=== PATIENT | male | born 1980 | race Caucasian/White ===

== ENCOUNTER 2019-04-22 15:51 | Inpatient (IN) ==
--- NOTE | 2019-04-22 16:38 | EKG Report ---
Test Performed on : 04/22/2019 4:18:15 PM Test Reason : syncope Blood Pressure : / mmHG Vent. Rate : 112 BPM Atrial Rate : 112 BPM P-R Int : 124 ms QRS Dur : 082 ms QT Int : 306 ms P-R-T Axes : 064 096 031 degrees QTc Int : 417 ms Sinus tachycardia. Rightward axis Cannot rule out Anterior infarct , age undetermined Abnormal ECG No previous ECGs available Unconfirmed Result
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
[2019-04-22] MEDS ORDERED: DILAUDID IV ONE (17:32)
[2019-04-22] MEDS ORDERED: DIPRIVAN 1% IV ONE (17:40)
--- NOTE | 2019-04-22 17:48 | Diag Imaging Result Doc PS360 ---
EXAM: TRAUMA SHOULDER LEFT INDICATION: shoulder injury TECHNIQUE: 2 views COMPARISON: None. FINDINGS: There is an anterior dislocation of the humeral head with respect to the glenoid. There is also a fracture through the greater tubercle of the humeral head with significant displacement. No other discrete fracture or dislocation is appreciated. Surrounding soft tissues are unremarkable. IMPRESSION: Anterior shoulder dislocation with associated displaced fracture through the greater tubercle of the humeral head. Electronically signed by Herman Kim 04/22/2019 5:46 PM
[2019-04-22] MEDS ORDERED: NS 1,000 ML ONE (18:23)
[2019-04-22] MEDS ORDERED: AMIDATE IV ONE (18:36)
[2019-04-22] MEDS ORDERED: AMIDATE ONE (18:42)
[2019-04-22] MEDS ORDERED: MORPHINE IV ONE (18:59)
--- NOTE | 2019-04-22 19:02 | Diag Imaging Result Doc PS360 ---
EXAM: SHOULDER 1 VIEW LEFT INDICATION: post reduction TECHNIQUE: One view COMPARISON: 04/22/2019 FINDINGS: There is still an anterior shoulder dislocation status post initial reduction attempt. There has been no change in positioning of the humeral head with respect to the glenoid. The displaced fracture through the greater tubercle of the humerus is unchanged. IMPRESSION: Persistent anterior dislocation status post reduction attempt. Electronically signed by Herman Kim 04/22/2019 6:59 PM
[2019-04-22] MEDS ORDERED: NORCO-7.5 PO ONE (19:52)
[2019-04-22] MEDS ORDERED: MORPHINE IV PRN (20:10)
[2019-04-22 20:20] LABS: INR 1.02; PROTIME 13.6 Seconds (11.0-16.0); PTT 33.2 Seconds (22.3-41.8)
[2019-04-22] MEDS ORDERED: ATIVAN IV ONE (20:29)
--- NOTE | 2019-04-22 20:41 | Diag Imaging Result Doc PS360 ---
EXAM: CT HEAD W/O CONTRAST INDICATION: trauma TECHNIQUE: This exam was performed using automated exposure control, adjustment of mA or kV according to patient size, and/or use of iterative reconstruction technique. COMPARISON: None. FINDINGS: There is no definite acute infarct given the limited sensitivity of CT versus MRI. There is no discrete intracranial mass, mass effect, or intracranial hemorrhage. The surrounding soft tissues and bony structures are essentially unremarkable. IMPRESSION: No evidence of acute intracranial pathology. Electronically signed by Herman Kim 04/22/2019 8:38 PM
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
[2019-04-22 21:34] LABS: URINE SOURCE CLEAN CATCH
[2019-04-22 21:37] LABS: BILIRUBIN URINE NEGATIVE (NEGATIVE); BLOOD URINE NEGATIVE (NEGATIVE); COLOR YELLOW; GLUCOSE URINE TRACE mg/dL (NEGATIVE); KETONE URINE NEGATIVE (NEGATIVE); LEUKOCYTES URINE NEGATIVE (NEGATIVE); NITRITE URINE NEGATIVE (NEGATIVE); PROTEIN URINE TRACE mg/dL (NEGATIVE); TURBIDITY URINE CLEAR (CLEAR); UROBILINOGEN URINE NORMAL (NORMAL)
[2019-04-22 21:38] LABS: UR EPITHELIAL CELLS <10 /HPF (<10); URINE BACTERIA NEGATIVE /HPF; URINE RBC <10 /HPF (<10); URINE WBC <10 /HPF (<10)
[2019-04-22 22:00] LABS: BASO# 0.02 X1000 (0.0-0.2); BASO% 0.1 % (0.0-0.8); EOS# 0.13 X1000 (0.0-0.7); EOS% 0.9 % (0.0-10.0); HEMATOCRIT 39.1 % (42.0-52.0); HEMOGLOBIN 12.8 g/dL (14.0-18.0); IMM GRAN# 0.03 X1000 (0.0-0.04); IMM GRAN% 0.2 % (0.0-0.5); LYMPH# 1.63 X1000 (1.2-3.4); MCH 27.6 PG (27-31); MCHC 32.7 g/dL (33-37); MCV 84.4 FL (81-99); MONO# 1.62 X1000 (0.11-0.59); MONO% 10.9 % (1.7-9.3); MPV 9.8 FL (7.4-10.4); NEUT# 11.45 X1000 (1.4-6.5); NEUT% 76.9 % (42.2-75.2); PLT 229 X1000 (130-400); RBC 4.63 XMIL (4.7-6.1); RDW 13.9 % (11.5-14.5); WBC 14.88 X1000 (4.8-10.8)
[2019-04-22 22:18] LABS: AGAP 9; BUN 18 mg/dL (8-22); CALCIUM 8.7 mg/dL (8.8-10.2); CHLORIDE 105 mmol/L (98-107); COSMO 281; CREATININE 0.8 mg/dL (0.7-1.2); ESTIMATED GFR > 60; GLUCOSE 167 mg/dL (70-104); POTASSIUM 4.1 mmol/L (3.5-5.1); SODIUM 138 mmol/L (136-145); TCO2 24 mmol/L (25-35)
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
[2019-04-22] MEDS: MORPHINE IV PRN (23:40)
[2019-04-22] MEDS: ZOFRAN IV PRN (23:40)
[2019-04-23] MEDS: MORPHINE IV PRN ×2 (03:52→08:48)
[2019-04-23] MEDS: ZOFRAN IV PRN (03:52)
[2019-04-23 07:16] LABS: BASO# 0.02 X1000 (0.0-0.2); BASO% 0.1 % (0.0-0.8); EOS# 0.18 X1000 (0.0-0.7); EOS% 1.3 % (0.0-10.0); HEMATOCRIT 40.4 % (42.0-52.0); HEMOGLOBIN 13.3 g/dL (14.0-18.0); IMM GRAN# 0.03 X1000 (0.0-0.04); IMM GRAN% 0.2 % (0.0-0.5); LYMPH# 1.51 X1000 (1.2-3.4); LYMPH% 10.8 % (20.5-51.1); MCH 27.9 PG (27-31); MCHC 32.9 g/dL (33-37); MCV 84.9 FL (81-99); MONO# 1.47 X1000 (0.11-0.59); MONO% 10.5 % (1.7-9.3); NEUT# 10.83 X1000 (1.4-6.5); NEUT% 77.1 % (42.2-75.2); PLT 251 X1000 (130-400); RBC 4.76 XMIL (4.7-6.1); WBC 14.04 X1000 (4.8-10.8)
[2019-04-23 07:31] LABS: AGAP 8; BUN 11 mg/dL (8-22); CALCIUM 8.6 mg/dL (8.8-10.2); CHLORIDE 102 mmol/L (98-107); COSMO 272; CREATININE 0.8 mg/dL (0.7-1.2); ESTIMATED GFR > 60; GLUCOSE 150 mg/dL (70-104); POTASSIUM 4.2 mmol/L (3.5-5.1); SODIUM 135 mmol/L (136-145); TCO2 25 mmol/L (25-35)
--- NOTE | 2019-04-23 09:00 | ORTHOPAEDICS CONSULTATION ---
DATE: 04/22/2019 CLINICAL HISTORY: The patient is a pleasant 39-year-old male with a past medical history of IV drug abuse with methamphetamine who presented to the emergency room with a 1-day history of significant pain and discomfort in his left shoulder. The patient reports that he passed out yesterday morning. He has had pain and discomfort in his left shoulder since that time. He is in severe discomfort. There are some conflicting reports of last time he used methamphetamine. He told the ER physician 1 day ago, and he told me upon my questioning 3 days ago. So unsure of this at this point. He presented to the emergency room. X-rays revealed a left anterior dislocation of the shoulder with fracture of greater tuberosity. Attempt at closed reduction was performed by the ER physician and Orthopedic consultation requested. PAST MEDICAL HISTORY: None. PAST SURGICAL HISTORY: None. ALLERGIES: No known drug allergies. CURRENT MEDICATIONS: None. SOCIAL HISTORY: IV drug abuse with methamphetamine. PHYSICAL EXAMINATION: Patient is awake, alert, and cooperative with exam. Again, his left shoulder has obvious deformity with significant swelling throughout the shoulder. Diffuse tenderness to palpation. Pain with gentle movement. He is able to flex down was fingers. He has good capillary refill distally. He is grossly neurovascularly intact with his hand. His compartments are soft. RADIOGRAPHS: X-rays were reviewed and revealed left anterior shoulder dislocation, greater tuberosity fracture. IMPRESSION: Left anterior shoulder dislocation with greater tuberosity fracture. PLAN: At this point, given the patient's findings, recommendation to proceed with closed reduction with possible open reduction, left shoulder, under general anesthesia. Risks and benefits were discussed including risks of anesthesia, , bleeding, infection, failure to relieve pain, postoperative stiffness, nerve injury, blood clots, and other imponderables. All questions were answered. cc: Michael Au MD
--- NOTE | 2019-04-23 13:40 | ORTHOPAEDICS PROGRESS NOTE ---
DATE: 04/23/2019 SUBJECTIVE: Mr. Mayfield that is status post day 3 of a left anterior shoulder dislocation that is the result of a fall. Closed reduction was attempted in the ER yesterday, was unsuccessful. We will be taking him to the operating room today for attempted closed reduction with possible open reduction of the left shoulder under general anesthesia. OBJECTIVE: Mr. Mayfield is lying in bed in no acute distress at this time. His left arm is to his side and he is very hesitant to move it. There is an obvious deformity with significant swelling throughout the shoulder. He has diffuse tenderness to palpation and pain with gentle movement. He is able to move all of his fingers. He has full sensation intact and his capillary refill is less than 2 seconds. ASSESSMENT: Left anterior shoulder dislocation with a greater tuberosity fracture. PLAN: Mr. Mayfield will be going to the OR this afternoon. He has been NPO since midnight. Risks and benefits of surgery were discussed with him this morning by Dr. Au. Dictated by MARLEY Wilson for Michael Au MD cc: Michael Au MD
[2019-04-23] MEDS ORDERED: XYLOCAINE-MPF 2% ONE (13:48)
[2019-04-23] MEDS ORDERED: QUELICIN (DOSE) ONE (13:48)
[2019-04-23] MEDS ORDERED: DIPRIVAN 1% ONE (13:48)
[2019-04-23] MEDS ORDERED: FENTANYL ONE (14:35)
[2019-04-23] MEDS ORDERED: ZOFRAN ONE (15:06)
[2019-04-23] MEDS ORDERED: OXY IR PO PRN (16:09)
--- NOTE | 2019-04-23 19:22 | OPERATIVE NOTE ---
PROCEDURE DATE: 04/23/2019 PREOPERATIVE DIAGNOSIS: Left shoulder fracture dislocation. POSTOPERATIVE DIAGNOSIS: Left shoulder fracture dislocation. PROCEDURE: Closed reduction under general anesthesia. SURGEON: Michael Au MD. ANESTHESIA: General. COMPLICATIONS: None. INDICATION: The patient is a pleasant 39-year-old male who is 2 days status post injury to his left shoulder. He was told by the ER physician that he passed out. The patient sustained the injury 2 days ago. The patient is an IV methamphetamine user and reported to the ER physician that he had used meth the day prior to presentation to the emergency room. He had pain and discomfort and underwent x-rays, and x-rays revealed a left anterior shoulder dislocation with a greater tuberosity fracture. An attempt at closed reduction in the emergency room was performed by the ER physician and was unsuccessful. Recommendation to proceed with closed reduction, possible open reduction, under general anesthesia was offered. Risks and benefits of surgery were explained, including the risks of anesthesia, , bleeding, infection, failure to relieve pain, postoperative stiffness, nerve injury, blood clots, and other imponderables. All questions were answered. Patient and family agreed with treatment plan. DETAILS OF OPERATION: The patient was taken to the operating room and underwent general anesthesia. After adequate anesthesia was obtained, gentle traction and countertraction maneuver was performed of the shoulder. A gentle closed reduction was then performed. Shoulder was carried through a range of motion and appeared to be stable except for in abducted and external rotation position. C-arm visualization was used to confirm concentric reduction, and patient had some mild displacement of the greater tuberosity fracture. After confirming concentric reduction, the patient was then placed in a sling. He tolerated the procedure well and was transferred to the recovery room in stable condition. cc: Michael Au MD
[2019-04-23] MEDS ORDERED: TYLENOL PO ONE (22:11)
[2019-04-23 22:30] VITALS: BP 160/97
--- NOTE | 2019-04-24 05:08 | DISCHARGE SUMMARY ---
ADMISSION DATE: 04/22/2019 DISCHARGE DATE: 04/23/2019 HISTORY: The patient is 39 years old, and he is seen postop. He had a left shoulder dislocation fracture of the greater tubercle of the humeral head. He underwent treatment which was open reduction and internal fixation per Orthopedic Service. Postoperative, he is kind of sleepy and lethargic, but vital signs are okay except for some hypertension. He had a dislocated shoulder, and a fracture of the tubercle of his humerus with displacement. PLAN: He had open reduction and internal fixation. Plan is to go home today. He does have a history of IV drug use. He was counseled against that. If stable, I think he is certainly okay to go home. He does not really have any active medical issues at this point. cc: Eagle Nelson MD
== END 2019-04-23 22:40 | disposition home or self-care (01) | DRG 563 ==
LOC: SUPCPDRO → ED 15:51 → SUATTDRO 22:07 → 4N 22:07
PROVIDERS: ATTEND Internal Medicine

== ENCOUNTER 2019-05-12 04:11 | Inpatient (IN) ==
--- NOTE | 2019-05-12 04:47 | PROVIDER DOCUMENTATION ---
HPI-General Adult - General Chief Complaint: Shoulder Pain Stated Complaint: RECHECK (L) SHOULDER, ALSO HEMATURIA Time Seen by Provider: 05/12/19 04:20 Source: patient Allergies/Adverse Reactions: Patient Allergies Allergy/AdvReac Type Severity Reaction Status Date / Time No Known Allergies Allergy Verified 05/12/19 04:21 Home Medications: Home Medication List Medication Instructions Recorded Confirmed Last Taken Type NK [No Home Medications] 04/22/19 05/12/19 Unknown History - History of Present Illness -Gen Adult Nature of Presenting Problems: Presents to the with multiple complaints. He states that he was seen in the ED 3 weeks ago when he passed out for an unknown reason and came into the ER for an anterior dislocation that he had to go to the OR for. He states that he was supposed to followup with Dr Au but never did and now he has decreased ROM since he had the surgery. He states he would like to know what is going on. He denies any new injury to it. He additionally states that for the last week he has had some hematuria. He endorses some frequency but denies any dysuria. He appears jaundiced and states that someone told him he was. He has not had any nausea or vomiting or fevers. He has a history of IV meth use and his last use was 3 days ago. He is here with his who is also jaundice and also admits to IV meth use Review of Systems - Adult - REVIEW OF SYSTEMS - ADULT Constitutional: reports: see HPI. denies: chills, fever Eyes: reports: no symptoms reported Ears, Nose, Mouth & Throat: reports: no symptoms reported Cardiovascular: reports: no symptoms reported Respiratory: reports: no symptoms reported Gastrointestinal: reports: no symptoms reported Genitourinary: reports: see HPI, frequency, hematuria. denies: dysuria Musculoskeletal: reports: see HPI, other (decreased ROM) Integumentary: reports: no symptoms reported Neurological: reports: no symptoms reported Psychiatric: reports: no symptoms reported Endocrine: reports: no symptoms reported Hematologic/Lymphatic: reports: no symptoms reported Allergic/Immunologic: reports: no symptoms reported All Other Systems: Reviewed and Negative Past History - Adult - PAST MEDICAL HISTORY-ADULT Review of Records: reports: Old Records Reviewed Cardiovascular: reports: denies history Respiratory: reports: denies history Musculoskeletal: reports: denies history Psychiatric: reports: other (IV drug abuse) Other Conditions: reports: other (H/o intermittent hypoglycemia reported by patient) - PRIOR SURGERIES/PROCEDURES Surgical/Procedure History: reports: none - IMMUNIZATION STATUS Childhood Immunizations: See Nurse Assessment Flu Vaccine: See Nurse Assessment - FAMILY HISTORY Family History: reviewed, not pertinent Physical Exam-General - CONSTITUTIONAL General Appearance: alert, no apparent distress - EYES Eyes: PERRL/EOMI, scleral icterus - HEAD, EARS, NOSE, MOUTH & THROAT HENMT: normocephalic/atraumatic - NECK Neck: supple, normal inspection - RESPIRATORY Respiratory: chest non-tender, lungs clear, normal breath sounds, no respiratory distress, no accessory muscle use - CARDIOVASCULAR Cardiovascular: normal peripheral pulses, regular rate, rhythm, no murmur - GASTROINTESTINAL (ABDOMEN) Abdominal Exam: normal bowel sounds, non tender, soft - MUSCULOSKELETAL Back Exam: normal inspection, no CVA tenderness, no vertebral tenderness Extremity: tenderness (left shoulder), other (moderate decreased ROM. Unable to abduct arm). negative: deformity, pulse deficit, slow capillary refill - SKIN Integumentary: warm/dry, jaundice - NEUROLOGIC Neurologic: grossly normal - PSYCHIATRIC Psych/Mental Status: normal mood/affect, oriented x 3 Progress - PLAN OF CARE/RESULTS Progress/Plan/Lab Results: Vital Signs - 8 hr 05/12/19 04:13 05/12/19 04:19 Temperature 97.8 F Pulse Rate 109 H Respiratory Rate 18 Blood Pressure 126/90 O2 Sat by Pulse Oximetry 96 Orders Category Date Time Status SHOULDER-LEFT [RAD] Stat Exams 05/12/19 04:16 Ordered CBC WITH ELECTRONIC DIFF [HEME] Stat Lab 05/12/19 04:35 Uncollected COMPREHENSIVE METABOLIC PANEL [CHEM] Stat Lab 05/12/19 04:35 Uncollected HEPATITIS PROFILE [HH] Stat Lab 05/12/19 04:35 Uncollected LIPASE [CHEM] Stat Lab 05/12/19 04:35 Uncollected PROTIME WITH INR [COAG] Stat Lab 05/12/19 04:35 Uncollected PTT [COAG] Stat Lab 05/12/19 04:35 Uncollected URINALYSIS W/POSS RFLX CULT [URINALYSIS] Stat Lab 05/12/19 04:16 Uncollected URINE DRUG SCREEN Stat Lab 05/12/19 04:16 Uncollected Result Diagrams: 05/12/19 04:49 05/12/19 04:49 - XRAY 1 XRAY: Left XRAY Study: Shoulder (humeral head fracture) - CONSULTS/PCP/HOSPITALIST Notification #1 *Consult/PCP/Hospitalist*: Betty MI for Hospitalist Time Discussed: 08:41 Consult Disposition: Will see in ED, Admit - CHANGE OF SHIFT REPORT (ED Provider) 1 Report Given and Care Transferred to:: Dr Carter Time of Transfer: 07:00 Items Pending: Ultrasound Results Departure - Departure Date of Disposition Decision: 05/12/19 Time of Disposition Decision: 08:41 DIAGNOSIS: Methamphetamine abuse, Greater tuberosity of humerus fracture, Jaundice, Elevated LFTs, Elevated bilirubin Disposition: ADMITTED INPATIENT 09 Certified Medical Emergency: Emergent Condition: Fair Referrals and Follow-Ups: None,PCP [Primary Care Provider] - - Critical Care Note This patient required my direct & personal management of CC.: No Attestation - Physician/ NATALIYA Attestation Patient care was provided by Advanced Practice Provider:: No The physician spent face to face time with patient:: Yes Advanced Practice Provider documentation review:: Supervising physician onsite and consulted in the evaluation and care of this patient. The physician did have a face to face encounter with the patient.
[2019-05-12] MEDS ORDERED: NS 1,000 ML IV ONE (04:57)
[2019-05-12 05:24] LABS: INR 1.06
[2019-05-12 05:25] LABS: PTT 38.4 Seconds (22.3-41.8)
[2019-05-12 05:38] LABS: BASO# 0.06 X1000 (0.0-0.2); BASO% 0.9 % (0.0-0.8); EOS# 0.02 X1000 (0.0-0.7); EOS% 0.3 % (0.0-10.0); HEMATOCRIT 48.2 % (42.0-52.0); HEMOGLOBIN 15.9 g/dL (14.0-18.0); IMM GRAN# 0.02 X1000 (0.0-0.04); IMM GRAN% 0.3 % (0.0-0.5); LYMPH# 1.41 X1000 (1.2-3.4); LYMPH% 20.8 % (20.5-51.1); MCH 27.2 PG (27-31); MCV 82.4 FL (81-99); MONO# 0.89 X1000 (0.11-0.59); MONO% 13.1 % (1.7-9.3); MPV 12.5 FL (7.4-10.4); NEUT# 4.37 X1000 (1.4-6.5); NEUT% 64.6 % (42.2-75.2); PLT 199 X1000 (130-400); RBC 5.85 XMIL (4.7-6.1); WBC 6.77 X1000 (4.8-10.8)
[2019-05-12 06:29] LABS: AGAP 14; ALKALINE PHOSPHATASE 434 U/L (32-122); BUN 10 mg/dL (8-22); CALCIUM 9.5 mg/dL (8.8-10.2); CHLORIDE 98 mmol/L (98-107); COSMO 274; ESTIMATED GFR > 60; GLUCOSE 118 mg/dL (70-104); GOT 1896 U/L (10-34); GPT 3210 U/L (10-44); LIPASE 48 U/L (13-60); POTASSIUM 4.1 mmol/L (3.5-5.1); SODIUM 137 mmol/L (136-145); TCO2 25 mmol/L (25-35); TOTAL BILIRUBIN 12.84 mg/dL (0.20-1.00); TOTAL PROTEIN 8.2 g/dL (6.3-8.3)
[2019-05-12 06:53] LABS: URINE SOURCE CLEAN CATCH
[2019-05-12 07:17] LABS: UR AMPHETAMINES QUAL PRESUMPTIVE POSITIVE (NONE DETECT); UR BARBITUATES QUAL NONE DETECTED (NONE DETECT); UR BENZODIAZEPIN QUAL NONE DETECTED (NONE DETECT); UR CANNABINOIDS QUAL NONE DETECTED (NONE DETECT); UR COCAINE QUAL NONE DETECTED (NONE DETECT); UR METHADONE QUAL NONE DETECTED (NONE DETECT); UR OPIATES QUAL NONE DETECTED (NONE DETECT); UR OXYCODONE QUAL NONE DETECTED (NONE DETECT); UR PCP QUAL NONE DETECTED (NONE DETECT)
[2019-05-12 07:19] LABS: BILIRUBIN URINE LARGE (NEGATIVE); BLOOD URINE NEGATIVE (NEGATIVE); COLOR YELLOW; GLUCOSE URINE NEGATIVE (NEGATIVE); KETONE URINE NEGATIVE (NEGATIVE); LEUKOCYTES URINE NEGATIVE (NEGATIVE); NITRITE URINE NEGATIVE (NEGATIVE); PROTEIN URINE 30 mg/dL (NEGATIVE); SP GRAVITY URINE 1.026; TURBIDITY URINE HAZY (CLEAR); UROBILINOGEN URINE 2 mg/dL (NORMAL)
[2019-05-12 07:21] LABS: UR EPITHELIAL CELLS <10 /HPF (<10); URINE BACTERIA NEGATIVE /HPF; URINE WBC <10 /HPF (<10)
--- NOTE | 2019-05-12 07:42 | Diag Imaging Result Doc PS360 ---
EXAM: SHOULDER-LEFT HISTORY: reports dislocation of shoulder TECHNIQUE: Shoulder three views including an axillary Y-view COMPARISON: 04/22/2019 FINDINGS: Humeral head fracture with fracture fragments again demonstrated. There is separation of the large lateral fracture fragment from the humeral head. Humeral head is slightly inferiorly placed in relation to its normal location. Electronically signed by Agusto Gunter 05/12/2019 7:40 AM
--- NOTE | 2019-05-12 08:14 | Diag Imaging Result Doc PS360 ---
EXAM: US GB < RUQ (LIMITED) INDICATION: jaundiced, transaminitis, elevated t-bili COMPARISON: None. FINDINGS: The patient was not fasting and the gallbladder is contracted. No gallstones are identified. The common bile duct is normal in diameter. Sonographic Barron's sign was reported to be negative. The liver is grossly unremarkable. Portal venous flow is hepatopetal. The visualized pancreas is unremarkable. The aorta and IVC are grossly unremarkable. The right kidney is grossly unremarkable. IMPRESSION: Essentially unremarkable right upper quadrant abdominal ultrasound. Electronically signed by Herman Kim 05/12/2019 8:11 AM
[2019-05-12] MEDS ORDERED: TORADOL IV ONE (08:43)
[2019-05-12] MEDS ORDERED: ZOFRAN IV PRN (09:28)
--- NOTE | 2019-05-12 09:47 | HISTORY AND PHYSICAL ---
HISTORY OF PRESENT ILLNESS: He is complaining of not feeling good for a couple weeks, actually a little over a week. Feels like he can tell he is a little bit yellow or jaundice color, and having some low-grade nausea. He felt like he has had subjective fever and chills. He recently had a fall with left shoulder pain and had left shoulder surgery per Dr. Au. PAST MEDICAL HISTORY: Really unremarkable other than that, so he had a left shoulder dislocation and fracture of the greater tubercle of the humeral head. He has a history of IV drug use with methamphetamines. PAST SURGICAL HISTORY: He has no other surgical history. ALLERGIES: No known drug allergies. SOCIAL HISTORY: He has been smoking for the past 7 years. He does have social alcohol use and admits IV methamphetamine. FAMILY HISTORY: No history of coronary artery disease. No significant history that he is aware of. REVIEW OF SYSTEMS: General: He feels like he has lost a little weight. His appetite is diminished. Some low-grade nausea. HEENT: No change in vision or hearing acuity. Respiratory: No increased work of breathing or dyspnea. Cardiovascular: No chest pain or tachy palpitation. Gastrointestinal and Genitourinary: No gross hematuria, dysuria, although he does feel like he has seen some blood in his urine. His urine was discolored. Musculoskeletal/Neurologic: No focal complaints. Endocrinologic/hematologic: No significant history. PHYSICAL EXAMINATION: VITAL SIGNS: Temperature 98.4 degrees, pulse 98, respirations 16, blood pressure 130/82. EYES: Pupils are equal and round. LUNGS: Clear in all lung dejesus. CARDIOVASCULAR EXAM: Regular rhythm and rate without murmur or S3. HEIGHT: 5 feet 11 inches. LABORATORY DATA: White count 6770, hematocrit is 48, platelet count 199,000. Sodium 137, potassium 4.1, chloride 98. BUN 10, creatinine 1.0. Blood sugar 118, calcium 12.84. AST 1896, ALT 3210. Urine drug screen positive for amphetamines; was negative for opiates, oxycodone, methadone, barbiturates, phencyclidine, benzodiazepines, cocaine and cannabinoids. Urinalysis was unremarkable. We did see 10 to 20 red blood cells, but otherwise unremarkable. IMAGING STUDIES: His shoulder x-ray did show humeral head fracture with fracture fragments again demonstrated. There is separation of the large lateral fracture fragment from the humeral head, and humeral head is slightly inferiorly placed in relation to normal location. That was on 04/21. Today's shoulder x-ray was in comparison with 04/21. So we will have Dr. Au look at that x- ray and see if there is any new change. Abdominal ultrasound essentially unremarkable; right upper quadrant abdominal ultrasound. ASSESSMENT AND PLAN: Appears to have acute hepatitis. Suspect hepatitis A. His is in the room next door, and she is going to be admitted as well with similar diagnosis. I suspect they contracted it from intravenous methamphetamine and exposure to each other. I will give him some intravenous fluids. I do not see any sign of bacterial infection or other viral infection. We will see what hepatitis profile shows. We will have Orthopedic look at the x-rays and make sure nothing further needs to be done. cc: Alek Neves MD
[2019-05-12] MEDS: NS 1,000 ML IV SCH ×2 (12:02→19:53)
[2019-05-12] MEDS: ULTRAM PO PRN ×2 (12:54→18:54)
[2019-05-13] MEDS: ULTRAM PO PRN ×3 (01:44→17:43)
[2019-05-13] MEDS: NS 1,000 ML IV SCH ×3 (03:53→22:20)
[2019-05-13 07:17] LABS: AGAP 11; ALBUMIN 2.9 g/dL (3.5-5.0); ALKALINE PHOSPHATASE 292 U/L (32-122); BUN 7 mg/dL (8-22); CALCIUM 8.2 mg/dL (8.8-10.2); CHLORIDE 104 mmol/L (98-107); COSMO 272; CREATININE 0.8 mg/dL (0.7-1.2); ESTIMATED GFR > 60; GLUCOSE 101 mg/dL (70-104); POTASSIUM 3.8 mmol/L (3.5-5.1); SODIUM 137 mmol/L (136-145); TCO2 22 mmol/L (25-35); TOTAL PROTEIN 5.8 g/dL (6.3-8.3)
[2019-05-13 07:34] LABS: GOT 952 U/L (10-34); GPT 1906 U/L (10-44)
[2019-05-13 13:04] LABS: HEPATITIS PROFILE ACUTE REVISED
--- NOTE | 2019-05-13 13:48 | PROGRESS NOTE ---
DATE: 05/13/2019 SUBJECTIVE: The patient seems to be getting better. He is still complaining of some abdominal discomfort and shoulder pain from previous trauma. No nausea, no vomiting. He seems to be tolerating p.o. No bowel movement so far. OBJECTIVE: Vital Signs: Temperature 98.1 degrees, pulse 72, respiratory rate 20, blood pressure 126/74, oxygen saturation 99 on room air. HEENT: Head normocephalic. Icteric sclerae. Neck: Supple. No JVD. No masses. Central trachea. Skin: Jaundiced. Cardiovascular: RRR. Abdomen: Soft. Some discomfort to palpation at the level of the right upper quadrant. Extremities: No edema, no clubbing, no cyanosis. Neurological Examination: The patient is awake and alert. He is oriented x3. No focal deficits. Laboratory: Sodium 137, potassium 3.8, chloride 104, bicarbonate 22, BUN 7, creatinine 0.8, glucose 101, calcium 8.2. Bilirubin 8.5, AST 952, ALT 1906, alkaline phosphatase 292, albumin 2.9. ASSESSMENT AND PLAN: 1. Acute hepatitis, suspected hepatitis A. The has been hospitalized for the same issue. They both are using intravenous drugs, which is likely the cause. 2. Intravenous drug use. This patient has been highly advised against drug use. I will continue with daily cessation education. 3. Left shoulder pain, apparently from previous trauma. X-ray showed the humeral head fracture with fracture fragments again demonstrated. There is separation of the large lateral fracture fragment from the humeral head. Humeral head is slightly inferiorly placed in relation with the normal location. Once this patient is more stable, we will go ahead and consult the orthopedic surgery department to evaluate this patient. cc: Rashawn Greenberg MD
[2019-05-14] MEDS: ULTRAM PO PRN ×2 (03:50→20:53)
[2019-05-14 07:01] LABS: BASO# 0.04 X1000 (0.0-0.2); BASO% 0.7 % (0.0-0.8); EOS# 0.07 X1000 (0.0-0.7); EOS% 1.2 % (0.0-10.0); HEMATOCRIT 40.3 % (42.0-52.0); LYMPH# 2.16 X1000 (1.2-3.4); LYMPH% 37.4 % (20.5-51.1); MCH 26.8 PG (27-31); MCHC 32.3 g/dL (33-37); MCV 83.1 FL (81-99); MONO# 0.57 X1000 (0.11-0.59); MONO% 9.9 % (1.7-9.3); MPV 10.7 FL (7.4-10.4); NEUT# 2.94 X1000 (1.4-6.5); NEUT% 50.8 % (42.2-75.2); PLT 203 X1000 (130-400); RBC 4.85 XMIL (4.7-6.1); RDW 17.1 % (11.5-14.5); WBC 5.78 X1000 (4.8-10.8)
[2019-05-14 07:42] LABS: AGAP 9; ALB/GLOB RATIO 0.9; ALKALINE PHOSPHATASE 315 U/L (32-122); BUN 7 mg/dL (8-22); CALCIUM 8.5 mg/dL (8.8-10.2); CHLORIDE 104 mmol/L (98-107); COSMO 268; CREATININE 0.8 mg/dL (0.7-1.2); ESTIMATED GFR > 60; GLUCOSE 93 mg/dL (70-104); GOT 490 U/L (10-34); GPT 1449 U/L (10-44); POTASSIUM 4.1 mmol/L (3.5-5.1); SODIUM 135 mmol/L (136-145); TCO2 22 mmol/L (25-35); TOTAL BILIRUBIN 7.93 mg/dL (0.20-1.00); TOTAL PROTEIN 6.3 g/dL (6.3-8.3)
[2019-05-14] MEDS: NS 1,000 ML IV SCH ×3 (08:03→20:54)
[2019-05-14] MEDS: CENTRUM SILVER PO SCH (11:49)
--- NOTE | 2019-05-14 13:27 | PROGRESS NOTE ---
DATE: 05/14/2019 SUBJECTIVE: The patient seems to be getting better. He still has some discomfort at the level of the right upper quadrant and shoulder from previous trauma. No nausea, no vomiting. He seems to be tolerating p.o. His liver enzymes are still elevated. I will wait until the LFTs are below 500 so he can be discharged. I will add multivitamin. OBJECTIVE: Vital Signs: Temperature 98.2 degrees, pulse 66, respiratory rate 19, blood pressure 124/70, oxygen saturation 98 on room air. HEENT: Head normocephalic no trauma. Icteric sclerae. Neck: Neck is supple. No JVD. No masses. Central trachea. Skin: Jaundiced. Cardiovascular: RRR. Abdomen: Soft. Some discomfort to palpation at the level of the right upper quadrant. Extremities: No edema, no clubbing, no cyanosis. Neurological examination: The patient is awake, alert. He is oriented x3. No focal deficits. LABORATORY: WBC 5.7, hemoglobin 13, hematocrit 40.3, platelets 203. Sodium 135, potassium 4.1, chloride 104, bicarbonate 22. BUN 7, creatinine 0.8, glucose 93, calcium 8.5. Total bilirubin 7.9, AST 490, ALT 1449, alkaline phosphatase 315, albumin 3. ASSESSMENT AND PLAN: 1. Acute hepatitis. We have a positive result that showed hepatitis A, likely due to intravenous drug use. 2. Intravenous drug use. This patient has been highly advised against drug use. I will continue with daily cessation education. 3. Left shoulder pain apparently from previous trauma. X-ray showed the humeral head fracture with fracture fragments again demonstrated. There is a separation of the large lateral fracture fragment from the humeral head. The humeral head is slightly inferiorly placed in relation to the normal location. Once this patient is more stable, we can go ahead and consult Orthopedic Surgery Department to evaluate this patient, or he can follow this up as an outpatient. cc: Rashawn Greenberg MD
[2019-05-14] MEDS: MORPHINE IV PRN (18:44)
[2019-05-15] MEDS: MORPHINE IV PRN ×4 (00:51→21:42)
[2019-05-15] MEDS: NS 1,000 ML IV SCH ×4 (06:52→21:33)
[2019-05-15 07:36] LABS: AGAP 11; ALB/GLOB RATIO 0.9; ALBUMIN 3.1 g/dL (3.5-5.0); ALKALINE PHOSPHATASE 296 U/L (32-122); BUN 8 mg/dL (8-22); CALCIUM 8.5 mg/dL (8.8-10.2); CHLORIDE 102 mmol/L (98-107); COSMO 270; CREATININE 0.7 mg/dL (0.7-1.2); ESTIMATED GFR > 60; GLUCOSE 91 mg/dL (70-104); GOT 250 U/L (10-34); SODIUM 136 mmol/L (136-145); TCO2 23 mmol/L (25-35); TOTAL BILIRUBIN 4.84 mg/dL (0.20-1.00); TOTAL PROTEIN 6.4 g/dL (6.3-8.3)
[2019-05-15 07:46] LABS: GPT 1028 U/L (10-44)
[2019-05-15] MEDS: CENTRUM SILVER PO SCH (08:46)
--- NOTE | 2019-05-15 13:53 | PROGRESS NOTE ---
DATE: 05/15/2019 SUBJECTIVE: This patient's abdominal pain is better. He is still complaining of some pain, he is also complaining of left shoulder pain due to previous fracture, I will request an evaluation by the orthopedic surgeon. OBJECTIVE: Vital Signs: Temperature 97.7 degrees, pulse 75, respiratory rate 19, blood pressure 127/82, oxygen saturation 99% on room air. HEENT: Head normocephalic. No trauma. PERRLA. Icteric sclerae. Neck: Supple. No JVD. No masses. Central trachea. Skin jaundiced. Cardiovascular: RRR. Abdomen: Soft, some discomfort to palpation at the level of the right upper quadrant. Extremities: No edema, no clubbing, no cyanosis. Neurological Examination: The patient is awake, alert. He is oriented x3. No focal deficits but pain at the level of the left shoulder. LABORATORY: Sodium 136, potassium 4, chloride 102, bicarbonate 23, BUN 8, creatinine 0.7, glucose 91, calcium 8.5, AST 250, ALT 1028, alkaline phosphatase 296. ASSESSMENT AND PLAN: 1. Acute hepatitis, A, likely due to intravenous drug use. This patient has been highly advised against drug use, I will continue with daily cessation education. Continue trending the LFTs, which are getting better. 2. Intravenous drug use as above. Continue daily cessation education. 3. Left shoulder pain due to previous humeral head fracture with dislocation, this dislocation has been reduced a few weeks after ago. He still has the fracture, I have requested an evaluation by the orthopedic surgeon to see if we need to do something in the near future after he is recovered from his hepatitis. cc: Rashawn Greenberg MD
--- NOTE | 2019-05-15 17:18 | ORTHOPAEDICS CONSULTATION ---
DATE: 05/15/2019 HISTORY OF PRESENT ILLNESS: Mr. Mayfield is a 39-year-old male who is known to us as he underwent a closed reduction of a left shoulder dislocation 3 weeks ago. He was supposed to follow up in the office and has not done so as of yet. He presented to the hospital complaining of not feeling well and noticing that he was yellow in color. He was also having some low-grade nausea at that time. He was admitted to the hospital for presumed hepatitis A due to chronic IV drug use. Orthopedics has been consulted for management of his left proximal humerus fracture that he suffered approximately 3 weeks ago. PAST MEDICAL HISTORY: Really noncontributory except for the fact he did have a left shoulder dislocation and fracture of the greater tubercle of the humeral head 3 weeks ago. He does have a longstanding history of IV drug use; specifically with methamphetamines. PAST SURGICAL HISTORY: None. ALLERGIES: No known drug allergies. SOCIAL HISTORY: He is a current every day smoker and has been for 7 years. He admits to alcohol abuse and IV drug use. FAMILY HISTORY: Noncontributory. REVIEW OF SYSTEMS: He did admit to some recent weight loss and loss of appetite. He did complain of some yellowing of his skin. Denied any work of breathing or shortness of breath. No chest pain. He has complained of left shoulder pain and restricted range of motion. PHYSICAL EXAMINATION: General: Mr. Mayfield is resting comfortably at this time, in no acute distress. He is neurovascularly intact to his left upper extremity. He does have some pain with range of motion. He does have some mild paresthesia to his lateral upper arm. His external rotation is approximately 10 to 15 degrees and passive forward flexion to approximately 120 degrees. The swelling to his left upper extremity is much improved from the last time we had seen him. IMAGING: His x-ray reveals a left humeral greater tubercle fracture with acceptable alignment and interval healing noted with callus formation. PLAN: The patient was to have this fracture treated nonoperatively and follow up in clinic. He has failed to follow up in clinic at this time. We will still plan on treating this nonoperatively, especially given his history of hepatitis A infection and IV drug use. This would lead him to being more likely to develop postoperative infection. We still recommend that he follow up in the office in approximately 3 to 4 weeks so we can repeat the x-ray. He will be limiting any overhead movement or active range of motion of his left shoulder. He is to work on range of motion of his left elbow to avoid any stiffness. This plan was discussed with the patient by Dr. Au at bedside. We will be following along as needed while Mr. Mayfield is hospitalized. Thank you for this consultation. Dictated by MARLEY Wilson for Michael Au MD cc: Michael Au MD
[2019-05-15] MEDS: ULTRAM PO PRN (21:41)
[2019-05-16] MEDS: MORPHINE IV PRN ×2 (03:59→10:25)
[2019-05-16 07:39] LABS: ALB/GLOB RATIO 0.8; ALBUMIN 2.9 g/dL (3.5-5.0); DIRECT BILIRUBIN 1.7 mg/dL (0.00-0.20); TOTAL PROTEIN 6.6 g/dL (6.3-8.3)
[2019-05-16 07:41] VITALS: BP 135/79
[2019-05-16] MEDS: CENTRUM SILVER PO SCH (09:48)
--- NOTE | 2019-05-16 16:46 | DISCHARGE SUMMARY ---
ADMISSION DATE: 05/12/2019 DISCHARGE DATE: 05/16/2019 DISCHARGE DIAGNOSES: 1. Acute hepatitis A likely due to IV drug use. 2. IV drug use. 3. Left shoulder pain due to previous humeral head fracture. 4. Tobacco abuse. PROCEDURES PERFORMED: 1. Abdomen ultrasound dated 05/12/2019, impression: Essentially unremarkable right upper quadrant abdominal ultrasound. 2. Shoulder x-ray dated 05/12/2019, impression: Humeral head fracture with fracture fragments again demonstrated. There is separation of the large lateral fracture fragment from the humeral head, the humeral head is slightly inferior placed in relation to its normal location. CONSULTATIONS: Orthopedic Surgery Department, Dr. Au. HOSPITAL COURSE: A 39-year-old male with a past medical history of tobacco use and IV drug use apparently, especially methamphetamine. He presented to the emergency department was admitted on 05/12/2019. Apparently, he was complaining of not feeling good for over a week, he noticed also some jaundice and nausea, subjective chills and fever. Recently, he also had a fall with left shoulder pain, dislocation of fracture and he was already evaluated by Orthopedic Surgery Department. He is supposed to follow up with them as an outpatient, but he failed to do that. Upon admission, he was stable though with a lot of pain mostly at the level of the shoulder, discomfort at the level of the right upper quadrant. Initial laboratory showed a bilirubin of 12.8, AST 1896, ALT 3210, alkaline phosphatase 434. We do have a positive urine toxicology that showed amphetamines and hepatitis panel showed hepatitis A infection. This patient was placed on IV fluid and pain medication for both his abdominal pain and shoulder pain. He also was evaluated by Orthopedic Surgery Department, and they states that initially the patient was to have his fracture treated nonoperatively and follow up in clinic, but he has failed to follow up in clinic at this time, and they are still planning to treat this patient nonoperatively, especially given his history of hepatitis A infection and IV drug use. They want to see the patient in 3 to 4 weeks after discharge, so they can repeat an x-ray. The patient has been improving on a daily basis and actually his liver enzymes have been improving significantly since admission. Bilirubin dropped from 12.8 to 3, AST from 1896 to 153, ALT from 3210 to 705 and alkaline phosphatase from 434 to 276. The patient is tolerating p.o., ambulating, and seems to be doing much better. I put him on multivitamin and pain medication during this hospitalization. I had a really large conversation with this patient about IV drug use. I told him that he can no longer do that again, especially because he had this issue with his liver. On the other hand, I recommended to this patient to stop drinking for at least 3 months or more than that, because these can be hepatotoxic as well and he seems to understand. Also, I recommended to stop smoking. The patient will be discharged today, he seems to be stable, tolerating p.o. and ambulating. His pain is better but I will give him some pain medication to go at discharge. DISCHARGE PHYSICAL EXAMINATION: Vital Signs: Temperature 98.4 degrees, pulse 61, respiratory rate 16, blood pressure 135/79. Oxygen saturation 99 on room air. HEENT: Head normocephalic. No trauma. PERRLA. Icteric sclerae. Neck is supple. No JVD. No masses. Central trachea. Chest: Clear to auscultation. No wheezing. No rales. Abdomen: Soft, mild tenderness to palpation at the level of the right upper quadrant. Extremities: No edema. No clubbing, no cyanosis. Neurological: The patient is completely awake, alert. He is oriented x3. No focal deficits. LABORATORY: Bilirubin 3, AST 153, ALT 705, alkaline phosphatase 276, albumin 2.9. DISCHARGE MEDICATIONS: Centrum Silver 1 tablet p.o. daily and tramadol 50 mg p.o. q.6 hours as needed. DISCHARGE INSTRUCTIONS: The patient needs to follow up with Orthopedic Surgery Department in 3 to 4 weeks. He will need to call for an appointment. He does not have a primary care doctor and apparently, as per the patient, he is also homeless. I encouraged this patient to stop doing drugs and smoking, avoid alcohol for at least 3 months or more. He seems to understand. workers compensation manager has been involved. He received a list of places that he can go. cc: Rashawn Greenberg MD
== END 2019-05-16 12:56 | disposition home or self-care (01) | DRG 443 ==
LOC: ED 04:11 → EDIPHOLD 09:12 → SUATTDRO 09:12 → 3N 10:54
PROVIDERS: ATTEND Internal Medicine